=== PATIENT | female | born 1925 ===

== ENCOUNTER 2016-12-01 15:55 | Emergency (ER) | payer MEDICARE ==
[2016-12-01 16:15] VITALS: RESP 18; TEMP 98.3; O2SAT 98
--- NOTE | 2016-12-01 16:21 | ED PDOC ---
Arrival/HPI - General Chief Complaint: Trauma Time Seen by Provider: 12/01/16 16:13 Historian: Patient, Family (Daughter) - History of Present Illness Time/Duration: Other (1 day) Symptom Onset: Sudden Symptom Course: Worsening Quality: Aching Severity Level: Moderate Associated Symptoms (Text): 12/01/16 16:19 Mechanical fall when she slipped on a wet bathroom floor yesterday injuring her nondominant left shoulder. No head trauma. No neck or back pain. No chest pain palpitations or dyspnea. No abdominal pain nausea or vomiting. No lower extremity trauma. Past Medical History - Infectious Disease Hx of Infectious Diseases: None - Reproductive Menopause: Yes - Cardiac Hx Hypertension: Yes - Endocrine/Metabolic Hx Diabetes Mellitus Type 2: Yes - Psychiatric Hx Substance Use: No - Anesthesia Hx Anesthesia Reactions: No Family/Social History - Physician Review Nursing Documentation Reviewed: Yes Family/Social History: Unknown Family HX Smoking Status: Never Smoked Hx Alcohol Use: No Hx Substance Use: No Allergies/Home Meds Allergies/Adverse Reactions: Allergies No Known Allergies Allergy (Verified 12/01/16 16:15) Review of Systems - Physician Review All systems were reviewed & negative as marked: Yes Physical Exam Vital Signs Temp Pulse Resp BP Pulse Ox 12/01/16 16:10 98.3 F 98 H 18 142/61 98 Temperature: Afebrile Blood Pressure: Normal Pulse: Regular Respiratory Rate: Normal Appearance: Positive for: Well-Appearing, Non-Toxic, Uncomfortable Pain Distress: Moderate Mental Status: Positive for: Alert and Oriented X 3 - Systems Exam Head: Present: Atraumatic, Normocephalic Neck: Present: Normal Range of Motion. No: MIDLINE TENDERNESS, Paraspinal Tenderness Respiratory/Chest: Present: Clear to Auscultation, Good Air Exchange. No: Respiratory Distress, Accessory Muscle Use Cardiovascular: Present: Regular Rate and Rhythm, Normal S1, S2. No: Murmurs Abdomen: Present: Normal Bowel Sounds. No: Tenderness, Distention, Peritoneal Signs, Rebound, Guarding Back: Present: Normal Inspection. No: CVA Tenderness Upper Extremity: Present: NORMAL PULSES, Tenderness, Swelling, Neurovascularly Intact, Other (Ecchymotic tender and swollen left shoulder). No: Normal Inspection, Cyanosis, Edema, Normal ROM, Erythema, Deformity Lower Extremity: Present: Normal Inspection. No: Edema Neurological: Present: GCS=15, CN II-XII Intact, Speech Normal, Motor Func Grossly Intact Skin: Present: Warm, Dry, Normal Color, Other (Left shoulder ecchymosis). No: Rashes Psychiatric: Present: Alert, Oriented x 3, Normal Insight, Normal Concentration Medical Decision Making - RAD Interpretation Radiology Orders: 12/01/16 16:18 SHOULDER LEFT [RAD] Stat Comminuted left shoulder surgical neck displaced fracture [employer] Press Operator: ED Physician Disposition/Present on Arrival - Present on Arrival Any Indicators Present on Arrival: No History of DVT/PE: No History of Uncontrolled Diabetes: No Urinary Catheter: No History of Decub. Ulcer: No History Surgical Site Infection Following: None - Disposition Have Diagnosis and Disposition been Completed?: Yes Diagnosis: Shoulder fracture, left Disposition: HOME/ ROUTINE Disposition Time: 17:08 Patient Plan: Discharge Condition: GOOD Discharge Instructions (ExitCare): Arm Fracture in Adults (ED) Additional Instructions: Rest and ice. Follow-up with orthopedist. Follow up in ER as needed. Prescriptions: Tramadol HCl [Ultram] 50 mg PO Q6 PRN #20 tab PRN Reason: Pain Ondansetron [Zofran Odt] 4 mg SL Q6 #20 odt Referrals: PCP,NO [Primary Care Provider] - Follow up with primary Juan Aguilar MD [Staff Provider] - Follow up with primary Forms: [employer] (Pashto)
[2016-12-01 18:02] VITALS: BP 138/68; PULSE 89
--- NOTE | 2016-12-01 18:15 | RAD ---
PROCEDURE: Radiographs of the Left Shoulder HISTORY: trauma COMPARISON: No prior. FINDINGS: BONES: Impacted fracture of the proximal left humerus at the humeral neck, head junction. Comminution, avulsion of the greater tuberosity. JOINTS: There is a component of subluxation or pseudosubluxation of the humeral head relative to the glenoid. SOFT TISSUES: Normal. OTHER FINDINGS: None. IMPRESSION: Comminuted fracture proximal left humerus with subluxation identified.
== END 2016-12-01 18:15 | disposition home or self-care (01) ==
LOC: ED 15:55
DX: S42.202A Unspecified fracture of upper end of left humerus, initial encounter for closed fracture (principal); W01.0XXA Fall on same level from slipping, tripping and stumbling without subsequent striking against object, initial encounter; E11.9 Type 2 diabetes mellitus without complications; I10 Essential (primary) hypertension
CPT/HCPCS: 73030; 99284; L3650

== ENCOUNTER 2017-01-05 16:56 | Inpatient (IN) | payer MEDICARE ==
[2017-01-05 17:18] VITALS: BMI 29.7
--- NOTE | 2017-01-05 17:45 | ED PDOC ---
Arrival/HPI - General Chief Complaint: Abdominal Pain Time Seen by Provider: 01/05/17 17:17 Historian: Patient, Family (daughter) - History of Present Illness Narrative History of Present Illness (Text): 01/05/17 17:20 A 89 year old female, whose past medical history includes diabetes mellitus, COPD, CVA, 3 stents, and stage 4 kidney failure, is brought into the emergency department by her daughter for left lower abdominal pain and hallucinations. The patient's daughter states the patient has been complaining of pain in her left lower abdomen, has been hallucinating and has slurred speech intermittently for the last couple of weeks. She also has been having trouble gripping things with her dominant right hand. She reports the patient will reach for things that are not there and will have in depth conversations with people who are not there. She also notes that the patient has not had a bowel movement for about 1 1/2 weeks, the patient's primary doctor prescribed her a solution and tablets for the constipation, but the patient refuses to take them. The patient denies any dysuria, headaches, fevers, vision changes, shortness of breath, or any other complaints at this time. The patient currently has her left arm in a sling, due to a previously diagnosed shoulder fracture that was treated in the emergency department 1 month ago. Time/Duration: 4-6 hours Symptom Onset: Sudden Symptom Course: Intermittent Activities at Onset: Rest, Light Context: Sitting, Home Past Medical History - Provider Review Nursing Documentation Reviewed: Yes - Infectious Disease Hx of Infectious Diseases: None - Cardiac Hx Hypertension: Yes - Pulmonary Hx Chronic Obstructive Pulmonary Disease (COPD): Yes - Neurological HX Cerebrovascular Accident: Yes - Endocrine/Metabolic Hx Diabetes Mellitus Type 2: Yes - Hematological/Oncological Hx Blood Disorders: No - Integumentary Hx Dermatological Disorder: No - Genitourinary/Gynecological Hx Genitourinary Disorders: No - Psychiatric Hx Psychophysiologic Disorder: No Hx Substance Use: No - Anesthesia Hx Anesthesia Reactions: No Family/Social History - Physician Review Nursing Documentation Reviewed: Yes Family/Social History: No Known Family HX Smoking Status: Never Smoked Hx Alcohol Use: No Hx Substance Use: No Allergies/Home Meds Allergies/Adverse Reactions: Allergies Iodinated Contrast- Oral and IV Dye Allergy (Verified 01/05/17 17:17) ANAPHYLAXIS Home Medications: Home Meds Medication Instructions Recorded Confirmed Aspirin [Aspirin Chewable] 81 mg PO DAILY 01/05/17 01/05/17 Cholecalciferol (Vitamin D3) 1,000 unit PO DAILY 01/05/17 01/05/17 [Vitamin D3] Isosorbide Mononitrate [Isosorbide 30 mg PO BID 01/05/17 01/05/17 Mononitrate ER] Lisinopril [Zestril] 2.5 mg PO DAILY 01/05/17 01/05/17 Metoprolol Succinate [Toprol XL] 50 mg PO DAILY 01/05/17 01/05/17 Pantoprazole [Protonix] 40 mg PO DAILY 01/05/17 01/05/17 Rosuvastatin Calcium [Crestor] 20 mg PO DAILY 01/05/17 01/05/17 Review of Systems - Physician Review All systems were reviewed & negative as marked: Yes - Review of Systems Constitutional: absent: Fevers Eyes: absent: Vision Changes Respiratory: absent: SOB Gastrointestinal: Abdominal Pain (lower left abdomen ), Constipation (1 1/2 weels ) Genitourinary Female: absent: Dysuria Neurological: Speech Changes. absent: Headache Psychiatric: Other (hallucinations) Physical Exam Vital Signs Reviewed: Yes Vital Signs Pulse Resp BP Pulse Ox 01/05/17 17:26 68 22 133/47 L 96 Temperature: Afebrile Blood Pressure: Normal Pulse: Regular Respiratory Rate: Normal Appearance: Positive for: Well-Appearing, Non-Toxic, Comfortable Pain Distress: None Mental Status: Positive for: Alert and Oriented X 3 - Systems Exam Head: Present: Atraumatic, Normocephalic Pupils: Present: PERRL Extroacular Muscles: Present: EOMI Conjunctiva: Present: Normal, Other (chronic mild ptosis on right eye) Mouth: Present: Moist Mucous Membranes Pharnyx: Present: Normal. No: ERYTHEMA, EXUDATE Neck: Present: Normal Range of Motion Respiratory/Chest: Present: Clear to Auscultation, Good Air Exchange. No: Respiratory Distress, Accessory Muscle Use Cardiovascular: Present: Regular Rate and Rhythm, Normal S1, S2. No: Murmurs Abdomen: Present: Normal Bowel Sounds. No: Tenderness, Distention, Peritoneal Signs Upper Extremity: Present: Normal Inspection. No: Cyanosis, Edema Lower Extremity: Present: Normal Inspection. No: Edema Neurological: Present: GCS=15, CN II-XII Intact, Speech Normal, Other (milld dysmetria ) Skin: Present: Warm, Dry, Normal Color. No: Rashes Psychiatric: Present: Alert, Oriented x 3, Normal Insight, Normal Concentration Medical Decision Making ED Course and Treatment: 01/05/17 17:48 Impression: A 89 year old female with lower left abdominal pain. Differential Diagnosis included but are not limited to: psychosis vs cva vs metabolic abnormality Plan: -- Abd & Pel CT -- Brain CT -- EKG -- Chest X-ray -- Labs -- Urinalysis -- Reassess and disposition Progress Notes: CT Head Without Intravenous Contrast FINDINGS: Brain: Moderate atrophy. No intracranial hemorrhage. No mass. Mild encephalomalacia within RIGHT occipital region. Few scattered foci of decreased attenuation within periventricular/subcortical white matter. Probable chronic lacunar infarcts within basal ganglia. No definite edema. Ventricles: No hydrocephalus. Bones/joints: No acute fracture. Soft tissues: Unremarkable. Vasculature: Atherosclerotic disease of intracranial arteries. Sinuses: No acute sinusitis. Mastoid air cells: No mastoid effusion. Orbits: Unremarkable as visualized. IMPRESSION: 1. Nonspecific white matter changes. Acute infarction may be CT occult within first 24 hours. If a focal deficit persists, consider followup CT or MRI for further evaluation. 2. Incidental/non-acute findings are described above. Dictated and Authenticated by: Ar Martins MD 01/05/2017 8:31 PM Eastern Time ([place] & [place]) CT abd/pelvis- Addendum created by Ar Martins MD on 01/05/2017 10:04 PM Eastern Time ([place] & [place]) Pancreas: Questionable 1.4 x 1.0 x 0.8 cm exophytic lesion vs parenchyma along head of pancreas. No ductal dilation. IMPRESSION: 1. Pelvic lesion, indeterminate. Malignancy is diagnosis of exclusion. Followup as clinically warranted. 2. Liver lesion, indeterminate. Recommend nonemergent MRI. 3. Questionable pancreatic lesion. Recommend nonemergent MRI. 4. Incidental/non-acute findings are described above. Initial Report created on 01/05/2017 9:47 PM Eastern Time ([place] & [place]) CT Abdomen and Pelvis Without Intravenous Contrast FINDINGS: Limitations: Motion artifact - mild. Lack of intravenous contrast. Lower thorax: Calcified mediastinal lymph node. Minimal atelectasis/scarring. 0.3 cm nodule vs focal scarring within LEFT lower lobe. Coronary artery calcifications. Probable small hiatal hernia. Contrast or calcified density within distal esophagus. ABDOMEN: Liver: 2.6 x 2.3 x 2.2 cm peripherally calcified lesion, indeterminate by CT criteria. Gallbladder and bile ducts: Cholecystectomy. No ductal dilation. Pancreas: Unremarkable. No ductal dilation. Spleen: Few splenic calcifications. No splenomegaly. Adrenals: No mass. Kidneys and ureters: Mild scarring/atrophy of kidneys. Renal vascular calcifications. No hydronephrosis. Stomach and bowel: Moderate amount of stool within colon. No definite mural thickening. No obstruction. Appendix: No findings to suggest acute appendicitis. PELVIS: Bladder: Unremarkable. No stones. Reproductive: Presumed hysterectomy. 8.3 x 5.7 x 5.2 cm heterogeneous, septated lesion within RIGHT paramidline region of pelvis. ABDOMEN and PELVIS: Intraperitoneal space: No significant fluid collection. No free air. Bones/joints: Degenerative changes of spine. Mild compression deformity T12 vertebral body, likely subacute to chronic. Soft tissues: Small umbilical hernia containing fat. Small ventral hernia containing fat. Vasculature: Moderate to extensive atherosclerotic disease. No aneurysm. Lymph nodes: No pathologically enlarged lymph nodes. 01/05/17 22:45 Patient with noted history. CT brain showing the encephalomalacia, likely old cva. Given worsening symptoms as well hallucinations, patient will need to be admitted for neuro and psych workup. CT a/p showing multiple lesions as noted - will need to obtain further imaging and workup to rule out malignancy. Patient will be admitted under Dr. Will' service, as discussed with Dr. Gallo. - Lab Interpretations Lab Results: 01/05/17 17:45 01/05/17 17:45 Lab Results 01/05/17 18:11: PT 12.5, INR 1.14 H, APTT 30.3 01/05/17 17:45: Sodium 142, Potassium 4.3, Chloride 102, Carbon Dioxide 33, Anion Gap 11, BUN 17, Creatinine 1.4 H, Est GFR ( Amer) 43, Est GFR (Non- Af Amer) 35, Random Glucose 107, Calcium 9.7, Total Bilirubin 0.4, AST 23, ALT 25, Alkaline Phosphatase 94, Lactate Dehydrogenase 531, Total Creatine Kinase 37 , Troponin I 0.02, Total Protein 6.5, Albumin 3.5, Globulin 2.9, Albumin/ Globulin Ratio 1.2, Amylase < 30 L, Lipase 44 01/05/17 17:45: WBC 7.8, RBC 4.60, Hgb 11.8 L, Hct 36.8, MCV 80.0, MCH 25.7, MCHC 32.1, RDW 17.6 H, Plt Count 332, MPV 10.2, Gran % 63.7, Lymph % (Auto) 23.2 , [place] % (Auto) 6.4 H, Eos % (Auto) 5.9 H, Baso % (Auto) 0.8, Gran # 4.95, Lymph # 1.8, [place] # 0.5, Eos # 0.5, Baso # 0.06 - RAD Interpretation Radiology Orders: 01/05/17 17:30 ABD & PELVIS W/O PO OR IV CONT [CT] Stat Brain [HEAD W/O CONTRAST] [CT] Stat 01/05/17 17:32 CHEST PORTABLE [RAD] Stat - Scribe Statement The provider has reviewed the documentation as recorded by the Jorjeibjermaine Cruz Provider Scribe Attestation: All medical record entries made by the Scribe were at my direction and personally dictated by me. I have reviewed the chart and agree that the record accurately reflects my personal performance of the history, physical exam, medical decision making, and the department course for this patient. I have also personally directed, reviewed, and agree with the discharge instructions and disposition. Disposition/Present on Arrival - Present on Arrival Any Indicators Present on Arrival: No History of DVT/PE: No History of Uncontrolled Diabetes: No Urinary Catheter: No History of Decub. Ulcer: No History Surgical Site Infection Following: None - Disposition Have Diagnosis and Disposition been Completed?: Yes Diagnosis: Altered mental status, Abdominal pain Disposition: HOSPITALIZED Disposition Time: 22:30 Patient Plan: Admission Condition: FAIR Referrals: Glenna Valentin MD [Primary Care Provider] - Follow up with primary Forms: [employer] (Lithuanian)
[2017-01-05 18:04] LABS: BASO # 0.06 K/mm3 (0.0-2.0); BASO % 0.8 % (0.0-3.0); EOS # 0.5 (0.0-0.7); EOS % 5.9 % (1.5-5.0); GRAN # 4.95 (1.4-6.5); GRAN % 63.7 % (50.0-68.0); HEMATOCRIT 36.8 % (36.0-48.0); LYMPH # 1.8 (1.2-3.4); LYMPH % 23.2 % (22.0-35.0); MEAN CORPUSCULAR HEMOGLOBIN 25.7 pg (25.0-35.0); MEAN CORPUSCULAR HGB CONC 32.1 g/dl (31.0-37.0); MEAN PLATELET VOLUME 10.2 fl (7.0-11.0); MONO # 0.5 (0.1-0.6); MONO % 6.4 % (1.0-6.0); RED CELL DISTRIBUTION WIDTH 17.6 % (11.5-14.5); WHITE BLOOD COUNT 7.8 10^3/ul (4.5-11.0)
[2017-01-05 18:08] LABS: ALB/GLOB RATIO 1.2 (1.1-1.8); ALKALINE PHOSPHATASE 94 U/L (38-126); ALT/SGPT 25 U/L (7-56); AST/SGOT 23 U/L (14-36); BILIRUBIN,TOTAL 0.4 mg/dL (0.2-1.3); BLOOD UREA NITROGEN 17 mg/dL (7-21); CALCIUM 9.7 mg/dL (8.4-10.5); CARBON DIOXIDE 33 mmol/L (21-33); CHLORIDE 102 mmol/L (98-107); GFR AFRICAN-AMERICAN 43; GLUCOSE,RANDOM 107 mg/dL (70-110); LIPASE 44 U/L (23-300); POTASSIUM 4.3 mmol/L (3.6-5.0); SODIUM 142 mmol/L (132-148); TOTAL PROTEIN 6.5 g/dL (5.8-8.3)
[2017-01-05 18:20] LABS: TROPONIN I 0.02 ng/mL
[2017-01-05 18:24] LABS: AMYLASE < 30 U/L (35-125)
[2017-01-05 18:33] LABS: INR 1.14 (0.93-1.08)
[2017-01-05 18:34] LABS: PARTIAL THROMBOPLASTIN TIME 30.3 Seconds (25.1-36.5)
--- NOTE | 2017-01-05 20:32 | CT ---
EXAM: CT Head Without Intravenous Contrast CLINICAL HISTORY: 89 years old, female; Pain; Headache; Headache not specified; Additional info: Hallucinations; R side tremor TECHNIQUE: Axial computed tomography images of the head/brain without intravenous contrast. All CT scans at this facility use one or more dose reduction techniques, viz.: automated exposure control; ma/kV adjustment per patient size (including targeted exams where dose is matched to indication; i.e. head); or iterative reconstruction technique. COMPARISON: No relevant prior studies available. FINDINGS: Brain: Moderate atrophy. No intracranial hemorrhage. No mass. Mild encephalomalacia within RIGHT occipital region. Few scattered foci of decreased attenuation within periventricular/subcortical white matter. Probable chronic lacunar infarcts within basal ganglia. No definite edema. Ventricles: No hydrocephalus. Bones/joints: No acute fracture. Soft tissues: Unremarkable. Vasculature: Atherosclerotic disease of intracranial arteries. Sinuses: No acute sinusitis. Mastoid air cells: No mastoid effusion. Orbits: Unremarkable as visualized. IMPRESSION: 1. Nonspecific white matter changes. Acute infarction may be CT occult within first 24 hours. If a focal deficit persists, consider followup CT or MRI for further evaluation. 2. Incidental/non-acute findings are described above.
--- NOTE | 2017-01-05 21:48 | CT ---
EXAM: CT Abdomen and Pelvis Without Intravenous Contrast CLINICAL HISTORY: 89 years old, female; L side abd pain TECHNIQUE: Axial computed tomography images of the abdomen and pelvis without intravenous contrast. COMPARISON: No relevant prior studies available. FINDINGS: Limitations: Motion artifact - mild. Lack of intravenous contrast. Lower thorax: Calcified mediastinal lymph node. Minimal atelectasis/scarring. 0.3 cm nodule vs focal scarring within LEFT lower lobe. Coronary artery calcifications. Probable small hiatal hernia. Contrast or calcified density within distal esophagus. ABDOMEN: Liver: 2.6 x 2.3 x 2.2 cm peripherally calcified lesion, indeterminate by CT criteria. Gallbladder and bile ducts: Cholecystectomy. No ductal dilation. Pancreas: Unremarkable. No ductal dilation. Spleen: Few splenic calcifications. No splenomegaly. Adrenals: No mass. Kidneys and ureters: Mild scarring/atrophy of kidneys. Renal vascular calcifications. No hydronephrosis. Stomach and bowel: Moderate amount of stool within colon. No definite mural thickening. No obstruction. Appendix: No findings to suggest acute appendicitis. PELVIS: Bladder: Unremarkable. No stones. Reproductive: Presumed hysterectomy. 8.3 x 5.7 x 5.2 cm heterogeneous, septated lesion within RIGHT paramidline region of pelvis. ABDOMEN and PELVIS: Intraperitoneal space: No significant fluid collection. No free air. Bones/joints: Degenerative changes of spine. Mild compression deformity T12 vertebral body, likely subacute to chronic. Soft tissues: Small umbilical hernia containing fat. Small ventral hernia containing fat. Vasculature: Moderate to extensive atherosclerotic disease. No aneurysm. Lymph nodes: No pathologically enlarged lymph nodes. IMPRESSION: 1. Pelvic lesion, indeterminate. Malignancy is diagnosis of exclusion. Followup as clinically warranted. 2. Liver lesion, indeterminate. Recommend nonemergent MRI. 3. Incidental/non-acute findings are described above.
[2017-01-05] MEDS ORDERED: Sodium Chloride 0.9% 1,000 ML IV SCH (23:45)
[2017-01-06] MEDS: Sodium Chloride 0.9% 1,000 ML IV SCH ×2 (00:07→15:44)
[2017-01-06 00:14] LABS: URINE BILIRUBIN NEGATIVE (NEGATIVE); URINE BLOOD TRACE-LYSED (NEGATIVE); URINE GLUCOSE (UA) NEGATIVE (NEGATIVE); URINE KETONE NEGATIVE (NEGATIVE); URINE LEUKOCYTE ESTERASE TRACE Leu/uL (NEGATIVE); URINE PROTEIN 100 mg/dL (<30 mg/dL); URINE UROBILINOGEN 0.2 E.U./dL (<1 E.U./dL)
[2017-01-06 00:15] LABS: CHOLESTEROL 87 mg/dL (130-200)
[2017-01-06 00:19] LABS: URINE APPEARANCE SL CLOUDY (CLEAR); URINE COLOR YELLOW (YELLOW)
[2017-01-06] MEDS: POLYETHYLENE GLYCOL 3350 17 GM/Dose PACKET PO SCH ×2 (00:19→09:02)
[2017-01-06 00:33] LABS: FREE T4 1.71 ng/dL (0.78-2.19)
[2017-01-06 00:47] LABS: THYROID STIMULATING HORMONE 2.54 mIU/mL (0.46-4.68)
[2017-01-06 00:53] LABS: URINE EPITHELIAL CELLS 0 - 2 /hpf (0-5); URINE RBC 0 - 2 /hpf (0-2)
[2017-01-06 00:54] LABS: URINE BACTERIA SMALL (NEG)
--- NOTE | 2017-01-06 01:06 | CP.PCM.HP ---
History of Present Illness - History of Present Illness History of Present Illness: Ms. Fan is an 89 yo F with PMH CVA, HTN, HLD, DM2, CAD s/p 3 stents, CKD stage 4, and COPD who presents with daughter who states that the pt was difficult to arouse this morning, but after waking up, the patient has been fine. Daughter also states that the patient has been having visual hallucinations (where she sees and has conversations with family members who are not there) and slurring of words. The patient moved to [place] to live with this daughter 1 month ago from the [place], so it is unclear to the daughter how chronic the problems are, but the patient has had them from the time she moved here. The patient does confirm these complaints, and states that she sees her son and is told that he is not really there. Per daughter, the patient's mental state waxes and wanes and she needs to be reminded of the date almost daily. The patient also complains of lower abdominal pain, and she was seen by her PMD and was prescribed 10day course of Levaquin which she finished on 01/03/17; the patient wears adult diapers. She was also prescribed lactulose for her constipation but only took it for a couple days; last BM was last week. The patient has a history of falls likely 2/2 deconditioning as she spends a lot of time in bed afraid that she'll fall when she moves. The patient is fully dependent on family for mobility and activities of daily living including bathroom use. The patient also has poor eyesight so it is difficult for her to get around. The patient denies any chest pain, cough, fevers/chills, headaches, n/v, numbness/tingling or focalized weakness. 12-pt ROS was reviewed and is otherwise negative. PMD: Dr. Glenna Valentin ([place]) PMH: as above PSH: hysterectomy (for cancer), and multiple breast surgeries (maybe biopsies? the family is not aware of the reason) Meds: isosorbide mononitrate 30mg BID, ASA 81mg, Pantoprazole 40mg daily, Rosuvastatin 10mg daily, Lisinopril 2.5mg daily, Tramadol 50mg BID and acetaminophen-cod#3 (for shoulder fracture), Vit D3 1000 iu daily Allergies: iodine, contrast SHx: lives with daughter, denies smoking tobacco, ETOH or substance abuse Present on Admission - Present on Admission Any Indicators Present on Admission: No History of DVT/PE: No History of Uncontrolled Diabetes: No Urinary Catheter: No Decubitus Ulcer Present: No Review of Systems - Review of Systems All systems: reviewed and no additional remarkable complaints except (as per HPI ) Past Patient History - Infectious Disease Hx of Infectious Diseases: None - Past Medical History & Family History Past Medical History?: Yes Past Family History: Reviewed and not pertinent - Past Social History Smoking Status: Never Smoked Alcohol: None Drugs: Denies Home Situation {Lives}: With Family - CARDIAC Hx Angina: Yes (s/p 3 stents) Hx Hypercholesterolemia: Yes Hx Hypertension: Yes - PULMONARY Hx Chronic Obstructive Pulmonary Disease (COPD): Yes - NEUROLOGICAL HX Cerebrovascular Accident: Yes - HEENT Other/Comment: poor eyesight - RENAL Hx Renal Failure: Yes (CKD stage 4) - ENDOCRINE/METABOLIC Hx Diabetes Mellitus Type 2: Yes (has been told she doesn't need meds anymore) - HEMATOLOGICAL/ONCOLOGICAL Hx Blood Disorders: No Hx Cancer: Yes (uterine?) - INTEGUMENTARY Hx Dermatological Problems: No - MUSCULOSKELETAL/RHEUMATOLOGICAL Hx Falls: Yes Hx Fractures: Yes (L shoulder ) Hx Unsteady Gait: Yes - GASTROINTESTINAL Hx Constipation: Yes - GENITOURINARY/GYNECOLOGICAL Hx Genitourinary Disorders: No - PSYCHIATRIC Hx Psychophysiologic Disorder: No Hx Substance Use: No - SURGICAL HISTORY Hx Surgeries: Yes Hx Hysterectomy: Yes - ANESTHESIA Hx Anesthesia Reactions: No Meds Allergies/Adverse Reactions: Allergies Allergy/AdvReac Type Severity Reaction Status Date / Time Iodinated Contrast- Oral and Allergy ANAPHYLAXIS Verified 01/05/17 17:17 IV Dye Physical Exam - Constitutional Appears: Well, Non-toxic, No Acute Distress - Head Exam Head Exam: ATRAUMATIC, NORMAL INSPECTION, NORMOCEPHALIC - Eye Exam Eye Exam: EOMI, Normal appearance, PERRL. absent: Nystagmus Pupil Exam: NORMAL ACCOMODATION - ENT Exam ENT Exam: Mucous Membranes Moist, Normal Exam - Neck Exam Neck exam: Positive for: Normal Inspection - Respiratory Exam Respiratory Exam: Clear to Auscultation Bilateral, NORMAL BREATHING PATTERN. absent: Rales, Rhonchi, Wheezes - Cardiovascular Exam Cardiovascular Exam: RRR, +S1, +S2, Systolic Murmur. absent: Gallop, JVD, Rubs - GI/Abdominal Exam GI & Abdominal Exam: Hypoactive Bowel Sounds, Soft. absent: Distended, Firm, Guarding, Tenderness - Extremities Exam Extremities exam: Positive for: normal inspection. Negative for: pedal edema - Back Exam Back exam: NORMAL INSPECTION - Neurological Exam Neurological exam: Alert, Oriented x3 - Expanded Neurological Exam Expanded Patient oriented to: person, place, time Speech: Fluid Speech Cranial nerves: EOM's Intact: Normal, Facial P[place]y w/Forehead Movement: Normal , Facial [place] w/o Forehead Movement: Normal, Facial Sensation: Normal, Gag Reflex: Normal, Nystagmus: Normal, Tongue Deviation: Normal Sensory exam: Lower Extremity Light Touch: Normal, Upper Extremity Light Touch: Normal Neuro motor strength exam: Right Upper Extremity: 5, Left Lower Extremity: 5, Right Lower Extremity: 5 - Psychiatric Exam Psychiatric exam: Normal Affect, Normal Mood - Skin Skin Exam: Normal Color, Warm Additional comments: no rashes noted Results - Vital Signs Recent Vital Signs: Last Vital Signs Temp 98.8 F 01/06/17 00:16 Pulse 83 01/06/17 00:16 Resp 18 01/06/17 00:16 BP 128/48 L 01/06/17 00:16 Pulse Ox 96 01/06/17 00:16 - Labs Result Diagrams: 01/05/17 17:45 01/05/17 17:45 Labs: Laboratory Results - last 24 hr 01/06/17 00:00 Urine Color Yellow Urine Appearance Sl cloudy Urine pH 6.0 Ur Specific [place] 1.020 Urine Protein 100 H Urine Glucose (UA) Negative Urine Ketones Negative Urine Blood Trace-lysed H Urine Nitrate Negative Urine Bilirubin Negative Urine Urobilinogen 0.2 Ur Leukocyte Esterase Trace H Urine RBC 0 - 2 Urine WBC 2 - 5 Ur Epithelial Cells 0 - 2 Urine Bacteria Small Assessment & Plan - Assessment and Plan (Free Text) Assessment: 89 yo F with PMH CVA, HTN, HLD, DM2, CAD s/p 3 stents, CKD stage 4, and COPD who presents with visual hallucinations likely 2/2 progressing dementia and constipation. Plan: 1. Hallucinations - likely 2/2 progressive dementia due to chronic changes and waxing/waning nature which is normal at baseline, however will rule out acute causes - CT head showed nonspecific white matter changes. Mild encephalomalacia within RIGHT occipital region. Few scattered foci of decreased attenuation within periventricular/subcortical white matter. Probable chronic lacunar infarcts within basal ganglia. - pt currently has no focal deficits and is not acutely slurring her speech, so no acute intervention is needed at this time - pt is afebrile with no signs of infectious - CXR does not acute infectious causes - UA is unremarkable, however f/u urine cx given recent UTI - urine drug screen ordered - LFTs normal - ammonia ordered to r/o hepatic encephalopathy - will also need to r/o uremic encephalopathy due to CKD hx - continue ASA - Neurology consulted, recs appreciated - Psych consulted, recs appreciated - Neurochecks - nurse swallow eval 2. Abdominal pain likely 2/2 constipation - CT Abdomen and pelvis w/o contrast showed questionable 1.4 x 1.0 x 0.8 cm exophytic lesion vs parenchyma along head of pancreas, 2.6 x 2.3 x 2.2 cm peripherally calcified lesion in liver, and 8.3 x 5.7 x 5.2 cm heterogeneous, septated lesion within RIGHT paramidline region of pelvis. - given the pt's hx of cancer requiring hysterectomy (per patient), would consider MRI for this patient to r/o mets - no signs of obstruction - A1C ordered to r/o gastroparesis 2/2 uncontrolled diabetes - Miralax and colace - consider enema if pt still does not have BM or improved bowel sounds in the morning - considering this patient's risk factors, will trend cardiac iso to r/o ACS - f/u urine cxs to r/o UTI cause of abdominal pain - motrin PRN pain 3. Hx CVA - cont ASA - neuro checks - neuro is consulted 4. Hx HTN - cont Lisinopril, nitrate, metoprolol - currently maintained well 5. Hx HLD - lipid panel ordered - per daughter, pt is on 10mg crestor due to improving lipid panel (per PMD; down from 20mg daily) - will cont 10mg Lipitor 6. Hx DM2 - per daughter, pt hasn't been on anti-diabetic meds for a while due to good glycemic control (per PMD) - Hemoglobin A1C ordered - start meds accordingly after A1c result 7. Hx CKD - stage 4 per daughter - Cr 1.4 with no known baseline - will give gentle hydration at NS 75ml/hr - avoid nephrotoxic meds - monitor I/O - consider inserting lopez as pt is not able to get up to use bathroom and for monitoring I/O 8. Hx COPD - does not take anything at home regularly for it - is currently not wheezing - Duoneb PRN 9. deconditioning - PT/OT ordered - fall risk PTX/Heparin HHD NS 75 Patient was seen, examined and discussed with attending, Dr. Sabino Deleon PGY1 - Date & Time Date: 01/06/17 Time: 01:38
[2017-01-06] MEDS ORDERED: DiphenhydrAMINE 12.5 mg/5 ml LIQ UD (5 ml) PO ONE (01:15)
[2017-01-06 01:40] LABS: TROPONIN I < 0.01 ng/mL
[2017-01-06 02:04] VITALS: RESP 20
[2017-01-06] MEDS ORDERED: Influenza Vaccine 60 mcg/0.5 mL SYR (4YR UP) IM ONE (02:04)
[2017-01-06] MEDS ORDERED: Pneumococcal 23-Valent Vaccine IM ONE (02:04)
[2017-01-06] MEDS ORDERED: Albuterol-Ipratrop 3 mg / 0.5 (3 ml) UD IH PRN (02:34)
[2017-01-06 02:52] LABS: INR 1.14 (0.93-1.08)
[2017-01-06] MEDS ORDERED: Pantoprazole 40 mg EC Tab PO SCH (06:00)
[2017-01-06 06:50] LABS: HEMATOCRIT 35.4 % (36.0-48.0); MEAN CELL VOLUME 80.3 fl (80.0-105.0); MEAN CORPUSCULAR HEMOGLOBIN 25.4 pg (25.0-35.0); MEAN CORPUSCULAR HGB CONC 31.6 g/dl (31.0-37.0); MEAN PLATELET VOLUME 10.3 fl (7.0-11.0); WHITE BLOOD COUNT 8.1 10^3/ul (4.5-11.0)
[2017-01-06 07:12] LABS: TROPONIN I 0.02 ng/mL
[2017-01-06 07:14] LABS: ALB/GLOB RATIO 1.1 (1.1-1.8); BILIRUBIN,TOTAL 0.6 mg/dL (0.2-1.3); CALCIUM 9.5 mg/dL (8.4-10.5); POTASSIUM 4.3 mmol/L (3.6-5.0); TOTAL PROTEIN 6.1 g/dL (5.8-8.3)
[2017-01-06 08:59] VITALS: BP 104/74; TEMP 98.5; O2SAT 97
--- NOTE | 2017-01-06 09:04 | RAD ---
HISTORY: abd pain COMPARISON: No prior. FINDINGS: LUNGS: No active pulmonary disease. PLEURA: No significant pleural effusion identified, no pneumothorax apparent. CARDIOVASCULAR: Normal. OSSEOUS STRUCTURES: No significant abnormalities. VISUALIZED UPPER ABDOMEN: Normal. OTHER FINDINGS: None. IMPRESSION: No active disease.
[2017-01-06 09:12] VITALS: PULSE 67
--- NOTE | 2017-01-06 09:23 | CARD ---
APPROVED REPORT EKG Measurement Heart [id number] ID [id number] <Conclusion> Normal sinus rhythm Left bundle branch block Abnormal ECG
[2017-01-06] MEDS ORDERED: Metoprolol Succinate 50 mg XL Tab PO SCH (10:00)
--- NOTE | 2017-01-06 13:42 | CP.PCM.CON ---
<Lea Garzon - Last Filed: 01/06/17 22:38> History of Present Illness - History of Present Illness History of Present Illness: PGY-2 Neurology consult note for Dr. Manley's service 89 yo female with PMH CVA, HTN, HLD, DM2, CAD s/p 3 stents, CKD stage 4, and COPD who presents with AMS, confusion and hallucination. Daughter is bedside. She states that the patient has been having visual hallucinations and slurring of words.The patient recently moved to [place] to live with this daughter about 1 month ago, it is unclear if this is worsening of chronic problems. The patient is alert and oriented to person and place, she does confirm that she is experiencing hallucination. these complaints. Per daughter, the patient's mental state waxes and wanes and she needs to be reminded the patient of the date multiple times daily. The patient reports history of falls, including one about 1 month. The patient is fully dependent on family for mobility and activities of daily living including bathroom use. The patient also reports has poor eyesight so it is difficult for her to get around. The patient denies any chest pain, cough, fevers/chills, headaches, n/v, numbness/tingling or focalized weakness. PMH: CVA, HTN, HLD, DM2, CAD s/p 3 stents, CKD stage 4, and COPD PSH: hysterectomy, and multiple breast surgeries (unknown) home Meds: isosorbide mononitrate 30mg BID, ASA 81mg, Pantoprazole 40mg daily, Rosuvastatin 10mg daily, Lisinopril 2.5mg daily, Tramadol 50mg BID and acetaminophen-cod#3 (for shoulder fracture), Vit D3 1000 iu daily Allergies: iodine, contrast SHx: lives with daughter, denies smoking tobacco, alcohol use or illicit drug use Review of Systems - Review of Systems All systems: reviewed and no additional remarkable complaints except (as stated in HPI) Past Patient History - Infectious Disease Hx of Infectious Diseases: None - Past Medical History & Family History Past Medical History?: Yes Past Family History: Reviewed and not pertinent - Past Social History Smoking Status: Never Smoked Alcohol: None Drugs: Denies Home Situation {Lives}: With Family - CARDIAC Hx Angina: Yes (s/p 3 stents) Hx Hypercholesterolemia: Yes Hx Hypertension: Yes - PULMONARY Hx Chronic Obstructive Pulmonary Disease (COPD): Yes - NEUROLOGICAL HX Cerebrovascular Accident: Yes - HEENT Other/Comment: poor eyesight - RENAL Hx Renal Failure: Yes (CKD stage 4) - ENDOCRINE/METABOLIC Hx Diabetes Mellitus Type 2: Yes (has been told she doesn't need meds anymore) - HEMATOLOGICAL/ONCOLOGICAL Hx Blood Disorders: No Hx Cancer: Yes (uterine?) - INTEGUMENTARY Hx Dermatological Problems: No - MUSCULOSKELETAL/RHEUMATOLOGICAL Hx Falls: Yes Hx Fractures: Yes (L shoulder ) Hx Unsteady Gait: Yes - GASTROINTESTINAL Hx Constipation: Yes - GENITOURINARY/GYNECOLOGICAL Hx Genitourinary Disorders: No - PSYCHIATRIC Hx Psychophysiologic Disorder: No Hx Substance Use: No - SURGICAL HISTORY Hx Surgeries: Yes Hx Hysterectomy: Yes - ANESTHESIA Hx Anesthesia Reactions: No Meds Allergies/Adverse Reactions: Allergies Allergy/AdvReac Type Severity Reaction Status Date / Time Iodinated Contrast- Oral and Allergy ANAPHYLAXIS Verified 01/05/17 17:17 IV Dye - Medications Medications: Current Medications Albuterol/Ipratropium (Duoneb 3 Mg/0.5 Mg (3 Ml) Ud) 3 ml [id number] PRN PRN Reason: Shortness of Breath Last Admin: 01/06/17 03:38 Dose: 3 ml Aspirin (Aspirin Chewable) 81 mg PO DAILY [facility] Last Admin: 01/06/17 09:02 Dose: 81 mg Atorvastatin Calcium (Lipitor) 10 mg PO DIN [facility] Cholecalciferol (Vitamin D) 1,000 iu PO DAILY [facility] Last Admin: 01/06/17 09:03 Dose: 1,000 iu Docusate Sodium (Colace) 100 mg PO DAILY [facility] Last Admin: 01/06/17 09:02 Dose: 100 mg Heparin Sodium (Porcine) (Heparin) 5,000 units SC Q12 CORNELL PRN Reason: Protocol Last Admin: 01/06/17 09:02 Dose: 5,000 units Sodium Chloride (Sodium Chloride 0.9%) 1,000 mls @ 75 mls/hr IV [id number] [facility] Last Admin: 01/06/17 00:07 Dose: 75 mls/hr Ibuprofen (Motrin Tab) 400 mg PO Q6H PRN PRN Reason: Pain, Mild (1-3) Isosorbide Mononitrate (Imdur Er) 30 mg PO BID [facility] Lisinopril (Zestril) 2.5 mg PO DAILY [facility] Last Admin: 01/06/17 09:03 Dose: Not Given Memantine (Namenda) 5 mg PO BID [facility] Metoprolol Succinate (Toprol Xl) 50 mg PO DAILY [facility] Last Admin: 01/06/17 09:04 Dose: Not Given Pantoprazole Sodium (Protonix Ec Tab) 40 mg PO 0600 [facility] Last Admin: 01/06/17 05:43 Dose: 40 mg Polyethylene Glycol (Miralax) 17 gm PO BID [facility] Last Admin: 01/06/17 09:02 Dose: 17 gm Physical Exam - Constitutional Appears: No Acute Distress - Head Exam Head Exam: ATRAUMATIC, NORMAL INSPECTION, NORMOCEPHALIC - Eye Exam Eye Exam: EOMI - ENT Exam ENT Exam: Mucous Membranes Moist - Respiratory Exam Respiratory Exam: Clear to Auscultation Bilateral, NORMAL BREATHING PATTERN. absent: Rhonchi, Wheezes, Respiratory Distress, Stridor - Cardiovascular Exam Cardiovascular Exam: REGULAR RHYTHM, +S1. absent: Tachycardia, Systolic Murmur - GI/Abdominal Exam GI & Abdominal Exam: Soft. absent: Tenderness - Extremities Exam Extremities exam: Positive for: normal inspection. Negative for: pedal edema, tenderness - Neurological Exam Neurological exam: Alert, CN II-XII Intact - Expanded Neurological Exam Expanded Patient oriented to: person, place Cranial nerves: EOM's Intact: Normal, Tongue Deviation: Normal Neuro motor strength exam: Left Upper Extremity: 5, Right Upper Extremity: 5, Left Lower Extremity: 5, Right Lower Extremity: 5 - Psychiatric Exam Psychiatric exam: Normal Affect, Normal Mood Results - Vital Signs Recent Vital Signs: Last Vital Signs Temp 98.5 F 01/06/17 06:00 Pulse 67 01/06/17 09:04 Resp 20 01/06/17 06:00 BP 104/74 01/06/17 09:04 Pulse Ox 97 01/06/17 06:00 - Labs Result Diagrams: 01/06/17 06:15 01/06/17 06:15 Labs: Laboratory Results - last 24 hr 01/06/17 01/06/17 01/06/17 00:00 00:50 02:00 WBC RBC Hgb Hct MCV MCH MCHC RDW Plt Count MPV PT INR Sodium Potassium Chloride Carbon Dioxide Anion Gap BUN Creatinine Est GFR ( Amer) Est GFR (Non-Af Amer) POC Glucose (mg/dL) Random Glucose Calcium Total Bilirubin AST ALT Alkaline Phosphatase Ammonia < 9 L Lactate Dehydrogenase 490 Total Creatine Kinase 36 Troponin I < 0.01 D NT-Pro-B Natriuret Pep 1140 H Total Protein Albumin Globulin Albumin/Globulin Ratio Urine Color Yellow Urine Appearance Sl cloudy Urine pH 6.0 Ur Specific [place] 1.020 Urine Protein 100 H Urine Glucose (UA) Negative Urine Ketones Negative Urine Blood Trace-lysed H Urine Nitrate Negative Urine Bilirubin Negative Urine Urobilinogen 0.2 Ur Leukocyte Esterase Trace H Urine RBC 0 - 2 Urine WBC 2 - 5 Ur Epithelial Cells 0 - 2 Urine Bacteria Small 01/06/17 01/06/17 01/06/17 02:00 06:15 06:15 WBC 8.1 RBC 4.41 Hgb 11.2 L Hct 35.4 L MCV 80.3 MCH 25.4 MCHC 31.6 RDW 18.0 H Plt Count 307 MPV 10.3 PT 12.5 INR 1.14 H Sodium 142 Potassium 4.3 Chloride 106 Carbon Dioxide 24 Anion Gap 15 BUN 16 Creatinine 1.2 Est GFR ( Amer) 51 Est GFR (Non-Af Amer) 42 POC Glucose (mg/dL) Random Glucose 79 Calcium 9.5 Total Bilirubin 0.6 AST 25 ALT 26 Alkaline Phosphatase 81 Ammonia Lactate Dehydrogenase 698 Total Creatine Kinase 43 Troponin I 0.02 D NT-Pro-B Natriuret Pep Total Protein 6.1 Albumin 3.2 Globulin 2.9 Albumin/Globulin Ratio 1.1 Urine Color Urine Appearance Urine pH Ur Specific [place] Urine Protein Urine Glucose (UA) Urine Ketones Urine Blood Urine Nitrate Urine Bilirubin Urine Urobilinogen Ur Leukocyte Esterase Urine RBC Urine WBC Ur Epithelial Cells Urine Bacteria 01/06/17 01/06/17 07:13 11:08 WBC RBC Hgb Hct MCV MCH MCHC RDW Plt Count MPV PT INR Sodium Potassium Chloride Carbon Dioxide Anion Gap BUN Creatinine Est GFR ( Amer) Est GFR (Non-Af Amer) POC Glucose (mg/dL) 84 113 H Random Glucose Calcium Total Bilirubin AST ALT Alkaline Phosphatase Ammonia Lactate Dehydrogenase Total Creatine Kinase Troponin I NT-Pro-B Natriuret Pep Total Protein Albumin Globulin Albumin/Globulin Ratio Urine Color Urine Appearance Urine pH Ur Specific [place] Urine Protein Urine Glucose (UA) Urine Ketones Urine Blood Urine Nitrate Urine Bilirubin Urine Urobilinogen Ur Leukocyte Esterase Urine RBC Urine WBC Ur Epithelial Cells Urine Bacteria Assessment & Plan - Assessment and Plan (Free Text) Assessment: 89 yo female with PMH CVA, HTN, HLD, DM2, CAD s/p 3 stents, CKD stage 4, and COPD who presents with cognitive impairment with most likely underlying dementia and hallucination. 1. cognitive impairment with dementia 2. hallucination Plan: - CT head showed nonspecific white matter changes. Mild encephalomalacia within RIGHT occipital region. Few scattered foci of decreased attenuation within periventricular/subcortical white matter. Probable chronic lacunar infarcts within basal ganglia. - CT head corresponds with deficits on exam - no further imaging recommended at this time - will start namenda 5mg PO bid - if needed can start seroquel 12.5 HS and titrate up - consult psych - PT/OT evaluations - consider Subacute rehab or home with services Thank you for the consult, please reconsult if needed Case reviewed and discussed with attending, Dr. Manley. <Bruce Manley - Last Filed: 01/07/17 05:57> Results - Vital Signs Recent Vital Signs: Last Vital Signs Temp 98.5 F 01/06/17 06:00 Pulse 67 01/06/17 09:04 Resp 20 01/06/17 06:00 BP 104/74 01/06/17 09:04 Pulse Ox 97 01/06/17 06:00 - Labs Result Diagrams: 01/06/17 06:15 01/06/17 06:15 Labs: Laboratory Results - last 24 hr 01/06/17 01/06/17 01/06/17 06:15 06:15 07:13 WBC 8.1 RBC 4.41 Hgb 11.2 L Hct 35.4 L MCV 80.3 MCH 25.4 MCHC 31.6 RDW 18.0 H Plt Count 307 MPV 10.3 Sodium 142 Potassium 4.3 Chloride 106 Carbon Dioxide 24 Anion Gap 15 BUN 16 Creatinine 1.2 Est GFR ( Amer) 51 Est GFR (Non-Af Amer) 42 POC Glucose (mg/dL) 84 Random Glucose 79 Calcium 9.5 Total Bilirubin 0.6 AST 25 ALT 26 Alkaline Phosphatase 81 Lactate Dehydrogenase 698 Total Creatine Kinase 43 Troponin I 0.02 D Total Protein 6.1 Albumin 3.2 Globulin 2.9 Albumin/Globulin Ratio 1.1 01/06/17 01/06/17 11:08 15:48 WBC RBC Hgb Hct MCV MCH MCHC RDW Plt Count MPV Sodium Potassium Chloride Carbon Dioxide Anion Gap BUN Creatinine Est GFR ( Amer) Est GFR (Non-Af Amer) POC Glucose (mg/dL) 113 H 138 H Random Glucose Calcium Total Bilirubin AST ALT Alkaline Phosphatase Lactate Dehydrogenase Total Creatine Kinase Troponin I Total Protein Albumin Globulin Albumin/Globulin Ratio Attending/Attestation - Attestation I have personally seen and examined this patient.: Yes I have fully participated in the care of the patient.: Yes I have reviewed all pertinent clinical information: Yes
--- NOTE | 2017-01-06 16:34 | CP.PCM.DIS ---
Provider - Provider Date of Admission: 01/05/17 22:39 Attending physician: Aguila Will MD Primary care physician: Glenna Valentin MD Consults: Neurology: Dr. Kristopher Manley Time Spent in preparation of Discharge (in minutes): 35 Diagnosis - Discharge Diagnosis (1) Cognitive impairment Status: Chronic (2) Dementia Status: Chronic Hospital Course - Lab Results Lab Results: Most Recent Lab Values WBC 8.1 10^3/ul (4.5-11.0) 01/06/17 06:15 RBC 4.41 10^6/uL (3.5-6.1) 01/06/17 06:15 Hgb 11.2 g/dL (12.0-16.0) L 01/06/17 06:15 Hct 35.4 % (36.0-48.0) L 01/06/17 06:15 MCV 80.3 fl (80.0-105.0) 01/06/17 06:15 MCH 25.4 pg (25.0-35.0) 01/06/17 06:15 MCHC 31.6 g/dl (31.0-37.0) 01/06/17 06:15 RDW 18.0 % (11.5-14.5) H 01/06/17 06:15 Plt Count 307 10^3/uL (120.0-450.0) 01/06/17 06:15 MPV 10.3 fl (7.0-11.0) 01/06/17 06:15 Gran % 63.7 % (50.0-68.0) 01/05/17 17:45 Lymph % (Auto) 23.2 % (22.0-35.0) 01/05/17 17:45 Clare % (Auto) 6.4 % (1.0-6.0) H 01/05/17 17:45 Eos % (Auto) 5.9 % (1.5-5.0) H 01/05/17 17:45 Baso % (Auto) 0.8 % (0.0-3.0) 01/05/17 17:45 Gran # 4.95 (1.4-6.5) 01/05/17 17:45 Lymph # 1.8 (1.2-3.4) 01/05/17 17:45 Clare # 0.5 (0.1-0.6) 01/05/17 17:45 Eos # 0.5 (0.0-0.7) 01/05/17 17:45 Baso # 0.06 K/mm3 (0.0-2.0) 01/05/17 17:45 PT 12.5 SECONDS (9.4-12.5) 01/06/17 02:00 INR 1.14 (0.93-1.08) H 01/06/17 02:00 APTT 30.3 Seconds (25.1-36.5) 01/05/17 18:11 Sodium 142 mmol/L (132-148) 01/06/17 06:15 Potassium 4.3 mmol/L (3.6-5.0) 01/06/17 06:15 Chloride 106 mmol/L (98-107) 01/06/17 06:15 Carbon Dioxide 24 mmol/L (21-33) 01/06/17 06:15 Anion Gap 15 (10-20) 01/06/17 06:15 BUN 16 mg/dL (7-21) 01/06/17 06:15 Creatinine 1.2 mg/dl (0.7-1.2) 01/06/17 06:15 Est GFR ( Amer) 51 01/06/17 06:15 Est GFR (Non-Af Amer) 42 01/06/17 06:15 POC Glucose (mg/dL) 113 mg/dL (65-110) H 01/06/17 11:08 Random Glucose 79 mg/dL (70-110) 01/06/17 06:15 Hemoglobin A1c 7.4 % (4.2-6.5) H 01/05/17 17:45 Calcium 9.5 mg/dL (8.4-10.5) 01/06/17 06:15 Total Bilirubin 0.6 mg/dL (0.2-1.3) 01/06/17 06:15 AST 25 U/L (14-36) 01/06/17 06:15 ALT 26 U/L (7-56) 01/06/17 06:15 Alkaline Phosphatase 81 U/L (38-126) 01/06/17 06:15 Ammonia < 9 umol/L (9-33) L 01/06/17 02:00 Lactate Dehydrogenase 698 U/L (333-699) 01/06/17 06:15 Total Creatine Kinase 43 U/L (35-230) 01/06/17 06:15 Troponin I 0.02 ng/mL D 01/06/17 06:15 NT-Pro-B Natriuret Pep 1140 pg/mL (0-450) H 01/06/17 00:50 Total Protein 6.1 g/dL (5.8-8.3) 01/06/17 06:15 Albumin 3.2 g/dL (3.0-4.8) 01/06/17 06:15 Globulin 2.9 gm/dL 01/06/17 06:15 Albumin/Globulin Ratio 1.1 (1.1-1.8) 01/06/17 06:15 Triglycerides 117 mg/dL (35-160) 01/05/17 17:45 Cholesterol 87 mg/dL (130-200) L 01/05/17 17:45 LDL Cholesterol Direct < 30 mg/dL (0-129) 01/05/17 17:45 HDL Cholesterol 33 mg/dL (29-60) 01/05/17 17:45 Amylase < 30 U/L (35-125) L 01/05/17 17:45 Lipase 44 U/L (23-300) 01/05/17 17:45 Free T4 1.71 ng/dL (0.78-2.19) 01/05/17 17:45 TSH 3rd Generation 2.54 mIU/mL (0.46-4.68) 01/05/17 17:45 Urine Color Yellow (YELLOW) 01/06/17 00:00 Urine Appearance Sl cloudy (CLEAR) 01/06/17 00:00 Urine pH 6.0 (4.7-8.0) 01/06/17 00:00 Ur Specific [place] 1.020 (1.005-1.035) 01/06/17 00:00 Urine Protein 100 mg/dL (<30 mg/dL) H 01/06/17 00:00 Urine Glucose (UA) Negative mg/dL (NEGATIVE) 01/06/17 00:00 Urine Ketones Negative mg/dL (NEGATIVE) 01/06/17 00:00 Urine Blood Trace-lysed (NEGATIVE) H 01/06/17 00:00 Urine Nitrate Negative (NEGATIVE) 01/06/17 00:00 Urine Bilirubin Negative (NEGATIVE) 01/06/17 00:00 Urine Urobilinogen 0.2 E.U./dL (<1 E.U./dL) 01/06/17 00:00 Ur Leukocyte Esterase Trace Javier/uL (NEGATIVE) H 01/06/17 00:00 Urine RBC 0 - 2 /hpf (0-2) 01/06/17 00:00 Urine WBC 2 - 5 /hpf (0-6) 01/06/17 00:00 Ur Epithelial Cells 0 - 2 /hpf (0-5) 01/06/17 00:00 Urine Bacteria Small (NEG) 01/06/17 00:00 - Hospital Course Hospital Course: Patient is an 89 year old female with PMH significant for CVA, HTN, HLD, DM2, CAD s/p 3 stents, CKD stage 4 and COPD who presented with family to [facility] [place] ED after family has reported patient has been having hallucinations(visual, suspected auditory) involving family members who are not present as well as slurring of speech. Patient was evaluated in ED. Head CT without contrast showed non-specific white matter changes, mid encephalomalacia within right occipital region, few scattered foci of decreased attenuation within periventricular/subcortical white matter likely chronic lacunar infracts within basal ganglia. Chest x-ray showed no acute infectious processes, UA was unremarkable, and initial neuro exam conducted showed no focal deficits without acutely slurring of speech. Neurology was consulted and evaluated the patient to have cognitive impairment with dementia and hallucination. Neurology started the patient on Namenda, recommended PT/OT and signed off with recommendations for subacute rehab or home with services. Family declined [facility] and chose to take patient home with plan for at home services. While in ED further evaluation of patient and lengthened course of constipation was conducted with an abdominal CT showingpelvic lesion indeterminate, liver lesion indeterminte, recommend nonemergent MRI. Patient along with family were informed of these findings and educated on the significance. They were instructed that the patient would need strict outpatient follow up with her primary care physician for further evaluation with MRI. Discussed with the family for potential for further GI, Heme/Onc, and surgical consultations for further evaluation and management of findings. Patient and family were in understanding and agreement with advised plan. Patient was noted to be deconditioned and PT/OT evaluation was done with recommendations for at home services vs. sub acute rehab. The patient family indicated they would like their mother to be at home with services and declined sub acute rehab at time of hospital admission. Cynthia was hemodynamically stable and with approval for discharge from neurology with home services. The patient was discharged with additional instructions given to patient and family related to medications, outpatient follow up and further details regarding monitoring her clinical course and possibility for return to hospital. Family and patient in agreement with plan. - Date & Time of H&P Date of H&P: 01/06/17 Time of H&P: 01:06 Discharge Exam - Head Exam Head Exam: ATRAUMATIC, NORMAL INSPECTION, NORMOCEPHALIC - Eye Exam Eye Exam: EOMI, PERRL Pupil Exam: PERRL - ENT Exam ENT Exam: Mucous Membranes Dry - Respiratory Exam Respiratory Exam: Clear to PA & Lateral, NORMAL BREATHING PATTERN - Cardiovascular Exam Cardiovascular Exam: REGULAR RHYTHM, +S1, +S2 - GI/Abdominal Exam GI & Abdominal Exam: Normal Bowel Sounds, Soft. absent: Tenderness - Extremities Exam Extremities exam: pedal pulses present - Back Exam Back exam: NORMAL INSPECTION. absent: CVA tenderness (L), CVA tenderness (R) - Neurological Exam Neurological exam: Alert, CN II-XII Intact, Oriented x3 Additional comments: motor and sensory grossly intact - Psychiatric Exam Psychiatric exam: Normal Affect, Normal Mood Additional comments: visual hallucinations - Skin Skin Exam: Dry, Intact, Warm Discharge Plan - Discharge Medications Prescriptions: Memantine [Namenda] 5 mg PO BID 14 Days #28 tab - Follow Up Plan Condition: FAIR Disposition: HOME/ ROUTINE Instructions: Acute Abdominal Pain (DC), Acute Delirium (DC), Altered Mental Status (GEN) Additional Instructions: 1. Follow up outpatient with your primary care doctor Dr. Glenna Valentin within 2 to 3 days after discharge of hospital 2. Follow up outpatient with primary medical doctor for MRI for evaluation of Abdominal CT findings concerning for malignancy 3. Take medications as prescribed to you 4. Return to hospital if your symptoms worsen or return 5. When feeding at home make sure to be seated upright when chewing and swallowing food 6. Continue with PT/OT services at home Referrals: Glenna Valentin MD [Primary Care Provider] -
--- NOTE | 2017-01-07 09:27 | CP.PCM.PCO ---
Physician Communication Note - Physician Communication Note Physician Communication Note: pt was d/c before this policy writer sales evaluation
== END 2017-01-06 17:52 | disposition home or self-care (01) | DRG 884 ==
LOC: ED 16:56 → ERH 22:39 → 3RNO 01-06 00:40
PROVIDERS: ADMIT Internal Medicine; ATTEND Internal Medicine
DX: F03.90 Unspecified dementia, unspecified severity, without behavioral disturbance, psychotic disturbance, mood disturbance, and anxiety (principal); N18.4 Chronic kidney disease, stage 4 (severe); I12.9 Hypertensive chronic kidney disease with stage 1 through stage 4 chronic kidney disease, or unspecified chronic kidney disease; E11.22 Type 2 diabetes mellitus with diabetic chronic kidney disease; J44.9 Chronic obstructive pulmonary disease, unspecified; I25.10 Atherosclerotic heart disease of native coronary artery without angina pectoris; K59.00 Constipation, unspecified; E78.5 Hyperlipidemia, unspecified; Z95.5 Presence of coronary angioplasty implant and graft; Z86.73 Personal history of transient ischemic attack (TIA), and cerebral infarction without residual deficits; Z79.82 Long term (current) use of aspirin